=== PATIENT | female | born 1950 | race Caucasian/White ===

== ENCOUNTER 2024-03-21 17:22 | Inpatient (IN) | payer MEDICARE, OTHER ==
[~2024-03-21] VITALS: Ht 162.6 cm; Wt 82.8 kg
[2024-03-21] VITALS (9 sets, daily range): BP systolic 102–131; BP diastolic 53–80; PULSE 70–99; RESP 18–27; O2SAT 92–97
[2024-03-21] MEDS ORDERED: fentaNYL/PF 50MCG/1 ML 2ML syringe IV PRN (18:25)
[2024-03-21] MEDS ORDERED: propofol 10mg/ml 20ml vial IV PRN (18:25)
[2024-03-21] MEDS ORDERED: magnesium sulf-water 2g/50mL 50 ML IV PRN (18:30)
[2024-03-21] MEDS ORDERED: potassium Cl 20 mEq SR tablet PO PRN (18:30)
[2024-03-21] MEDS ORDERED: morphine 2 MG/ML inj. syringe IV PRN ×2 (18:30)
[2024-03-21] MEDS ORDERED: magnesium sulf-water 4G/100mL 100 ML IV PRN (18:30)
[2024-03-21] MEDS ORDERED: bisacodyl 10mg suppository rectal RC PRN (18:30)
[2024-03-21] MEDS: PERFLUTREN PROTEIN-A MICROSPHR (Optison) 0.22 MG/ML 3ML VIAL IV ONE (18:30)
[2024-03-21] MEDS ORDERED: ondansetron/PF 4mg/2ml inj IV PRN (18:30)
[2024-03-21] MEDS: propofol 1000mg/100ml bottle 100 ML IV ONE (18:49)
[2024-03-21] MEDS: FENTANYL-0.9 % NACL/PF 100 ML IV SCH (18:50)
[2024-03-21] MEDS: propofol 1000mg/100ml bottle 100 ML IV SCH (18:50)
[2024-03-21] MEDS: normal saline 1000ml 1,000 ML IV SCH (18:51)
[2024-03-21 19:33] LABS: BASOPHILS # (AUTO) 0.1 X10'3 (0-0.2); BASOPHILS % (AUTO) 0.5 % (0-1); EOSINOPHILS # (AUTO) 0.3 X10'3 (0-0.9); HEMATOCRIT 49.3 % (35.0-45.0); HEMOGLOBIN 16.5 g/dl (12.0-16.0); LYMPHOCYTES % (AUTO) 13.8 % (21-51); MEAN CORPUSCULAR HEMOGLOBIN 31.5 PG (27.0-31.0); MEAN CORPUSCULAR HGB CONC 33.4 g/dL (33.0-36.5); MEAN CORPUSCULAR VOLUME 94.2 FL (78-98); MEAN PLATELET VOLUME 8.3 FL (7.4-10.4); MONOCYTES % (AUTO) 13.8 % (2-12); NEUTROPHILS # (AUTO) 10.2 X10'3 (1.8-7.7); NEUTROPHILS % (AUTO) 69.9 % (42-75); PLATELET COUNT 281 X10'3 (140-440); RED BLOOD COUNT 5.23 X10'6 (4.20-5.60); RED CELL DISTRIBUTION WIDTH 16.4 % (11.5-14.5); WHITE BLOOD COUNT 14.6 X10'3 (4.5-11.0)
[2024-03-21 19:36] LABS: BILIRUBIN,URINE NEGATIVE (Neg); CLARITY,URINE SLIGHTLY CLOUDY (Clear); COLOR,URINE YELLOW (Yellow); GLUCOSE, URINE NEGATIVE (Neg); KETONES,URINE 15 mg/dl (Neg); LEUKOCYTE ESTERASE ,URINE NEGATIVE (Neg); NITRITES, URINE NEGATIVE (Neg); OCCULT BLOOD,URINE SMALL (Neg); PROTEIN,URINE TRACE mg/dl (Neg)
[2024-03-21 19:40] LABS: UA COLLECTION TYPE FOLEY CATH
[2024-03-21 19:47] LABS: APTT 23 SECONDS (22-32); INR 1.2 INR; PROTHROMBIN TIME 12.2 SECONDS (9.0-12.0)
[2024-03-21 19:48] LABS: BACTERIA,URINE FEW /HPF (Neg); SQUAMOUS EPITHELIAL CELL,UR FEW /LPF (FEW); WBC,URINE 0-4 /HPF (0-4)
[2024-03-21 19:51] LABS: RENAL CELLS, URINE FEW /HPF
[2024-03-21 19:52] LABS: MUCUS STRANDS FEW /LPF (Neg)
[2024-03-21 19:54] LABS: ALANINE AMINOTRANSFERASE 25 U/L (12-78); ALBUMIN 3.3 G/DL (3.4-5.0); ALBUMIN/GLOBULIN RATIO 1.1 (1.1-1.5); ALKALINE PHOSPHATASE 61 IU/L (46-116); ANION GAP 12 (8-16); ASPARTATE AMINO TRANSFERASE 28 U/L (10-37); BILIRUBIN,TOTAL 1.5 MG/DL (0.1-1.0); BLOOD UREA NITROGEN 28 MG/DL (7-18); C-REACTIVE PROTEIN 0.09 MG/DL (0.0-0.5); CALCIUM 10.4 MG/DL (8.5-10.1); CHLORIDE 100 MMOL/L (99-107); GLUCOSE 135 MG/DL (70-104); POTASSIUM 3.8 MMOL/L (3.5-5.1); SODIUM 142 MMOL/L (135-145); TOTAL CARBON DIOXIDE 30.2 MMOL/L (24-32); TOTAL PROTEIN 6.2 G/DL (6.4-8.2); eCRCL 47 ML/MIN; eGFR 54 ML/MIN
[2024-03-21] MEDS: apixaban 5mg tablet PO SCH (20:00)
[2024-03-21] MEDS ORDERED: heparin, porcine 5000 units/ml vial SQ SCH (20:00)
[2024-03-21] MEDS: piperacillin/tazo 3.375gm/50ml 50 ML IV SCH (20:29)
[2024-03-21] MEDS: dexamethasone 4mg/ml inj IV SCH (20:32)
[2024-03-21 20:36] LABS: ABG BASE EXCESS 3.4 mmol/L (-2.0-3.0); ABG HCO3 24.9 mmol/L (21.0-28.0); ABG OXYGEN SATURATION 89.2 % (94.0-98.0); ABG PCO2 (T) 29.2 mmHg (32.0-45.0); ABG PH (T) 7.547 (7.350-7.450); FCOHb 0.7 % (0.5-1.5); FHHb 10.7 % (0.0-5.0); FMetHb 0.3 % (0.0-1.5); FO2Hb 88.3 % (94.0-98.0); MODE ac/prvc; PATIENT TEMPERATURE 36.5; PEEP 5 cm H2O; RESPIRATORY RATE 18 b/min; TIDAL VOLUME 400 mL; TOTAL HEMOGLOBIN 16.9 G/dl (12.0-16.0)
[2024-03-21] MEDS: vancomycin/NS 1 GM ADD-VANTAGE 250 ML IV SCH (23:49)
[2024-03-22] VITALS (34 sets, daily range): BP systolic 86–129; BP diastolic 49–90; PULSE 49–72; RESP 15–31; O2SAT 91–98
[2024-03-22 03:15] LABS: ABG BASE EXCESS 3.7 mmol/L (-2.0-3.0); ABG HCO3 26.9 mmol/L (21.0-28.0); ABG OXYGEN SATURATION 96.1 % (94.0-98.0); ABG PH (T) 7.491 (7.350-7.450); ABG PO2 (T) 77.7 mmHg (83.0-108.0); FCOHb 0.5 % (0.5-1.5); FHHb 3.9 % (0.0-5.0); FMetHb 0.3 % (0.0-1.5); FO2Hb 95.3 % (94.0-98.0); MODE ac/prvc; PATIENT TEMPERATURE 36.7; PEEP 10 cm H2O; RESPIRATORY RATE 18 b/min; TIDAL VOLUME 400 mL; TOTAL HEMOGLOBIN 15.9 G/dl (12.0-16.0)
[2024-03-22 05:56] LABS: ALANINE AMINOTRANSFERASE 23 U/L (12-78); ALBUMIN 2.9 G/DL (3.4-5.0); ALBUMIN/GLOBULIN RATIO 1.1 (1.1-1.5); ALKALINE PHOSPHATASE 53 IU/L (46-116); ANION GAP 7 (8-16); ASPARTATE AMINO TRANSFERASE 25 U/L (10-37); BILIRUBIN,TOTAL 0.8 MG/DL (0.1-1.0); BLOOD UREA NITROGEN 25 MG/DL (7-18); BUN/CREATININE RATIO 26.9 (10.0-20.0); CALCIUM 10.3 MG/DL (8.5-10.1); CHLORIDE 103 MMOL/L (99-107); CREATININE 0.93 MG/DL (0.40-0.90); GLUCOSE 141 MG/DL (70-104); MAGNESIUM 2.2 MG/DL (1.5-2.4); PHOSPHORUS 2.5 MG/DL (2.3-4.5); POTASSIUM 3.7 MMOL/L (3.5-5.1); SODIUM 140 MMOL/L (135-145); TOTAL CARBON DIOXIDE 30.1 MMOL/L (24-32); TOTAL PROTEIN 5.6 G/DL (6.4-8.2); TRIGLYCERIDES 85 MG/DL (20-135); eCRCL 45 ML/MIN; eGFR 59 ML/MIN
[2024-03-22 06:07] LABS: BASOPHILS % (AUTO) 0.4 % (0-1); EOSINOPHILS % (AUTO) 0 % (0-6); HEMATOCRIT 46.8 % (35.0-45.0); HEMOGLOBIN 15.5 g/dl (12.0-16.0); LYMPHOCYTES # (AUTO) 0.6 X10'3 (1.1-4.8); MEAN CORPUSCULAR HEMOGLOBIN 30.6 PG (27.0-31.0); MEAN CORPUSCULAR HGB CONC 33.1 g/dL (33.0-36.5); MEAN CORPUSCULAR VOLUME 92.6 FL (78-98); MEAN PLATELET VOLUME 8.5 FL (7.4-10.4); MONOCYTES # (AUTO) 0.4 X10'3 (0-0.9); NEUTROPHILS # (AUTO) 8.6 X10'3 (1.8-7.7); NEUTROPHILS % (AUTO) 89.6 % (42-75); PLATELET COUNT 246 X10'3 (140-440); RED BLOOD COUNT 5.06 X10'6 (4.20-5.60); RED CELL DISTRIBUTION WIDTH 16.6 % (11.5-14.5); WHITE BLOOD COUNT 9.6 X10'3 (4.5-11.0)
[2024-03-22] MEDS ORDERED: ARFO15VI3 NEB (13:41)
[2024-03-22] MEDS ORDERED: OLAN2.5T3 PO (13:41)
[2024-03-22] MEDS ORDERED: BUDE0.5A3 NEB (13:41)
[2024-03-22] MEDS ORDERED: DIVA250T8 PO (13:41)
[2024-03-22] MEDS ORDERED: CARB1DRO EACHEYE (13:41)
[2024-03-22] MEDS ORDERED: SENN1TAB33 PO (13:41)
[2024-03-22] MEDS ORDERED: ATOR10TA70 PO (13:41)
[2024-03-22] MEDS ORDERED: TORS20TA3 PO (13:41)
[2024-03-22] MEDS ORDERED: LEVO88CA4 PO (13:41)
[2024-03-22] MEDS ORDERED: DOCO1CAP11 PO (13:41)
[2024-03-22] MEDS ORDERED: CHOL20003 PO (13:41)
[2024-03-22] MEDS ORDERED: TRAZ-251 PO (13:41)
[2024-03-22] MEDS ORDERED: VITA400T10 PO (13:41)
[2024-03-22] MEDS ORDERED: IPRA3AMP31 NEB (13:41)
[2024-03-22] MEDS ORDERED: BUSP5TAB3 PO (13:41)
[2024-03-22] MEDS ORDERED: APIX5TAB3 PO (13:41)
[2024-03-22] MEDS ORDERED: POTA-208 PO (13:41)
[2024-03-22] MEDS ORDERED: ASCO100031 PO (13:41)
[2024-03-22] MEDS: mineral oil/petrolatum ophthal oint EACHEYE SCH (20:12)
[2024-03-23] VITALS (34 sets, daily range): BP systolic 98–130; BP diastolic 46–61; PULSE 46–73; RESP 10–28; O2SAT 89–99
[2024-03-23 02:11] LABS: BASOPHILS % (AUTO) 0.2 % (0-1); EOSINOPHILS % (AUTO) 0.1 % (0-6); HEMATOCRIT 39.2 % (35.0-45.0); HEMOGLOBIN 13.1 g/dl (12.0-16.0); LYMPHOCYTES # (AUTO) 1.2 X10'3 (1.1-4.8); LYMPHOCYTES % (AUTO) 6.9 % (21-51); MEAN CORPUSCULAR HEMOGLOBIN 31.1 PG (27.0-31.0); MEAN CORPUSCULAR HGB CONC 33.4 g/dL (33.0-36.5); MEAN CORPUSCULAR VOLUME 93.1 FL (78-98); MEAN PLATELET VOLUME 8.5 FL (7.4-10.4); MONOCYTES % (AUTO) 11.6 % (2-12); NEUTROPHILS # (AUTO) 13.8 X10'3 (1.8-7.7); NEUTROPHILS % (AUTO) 81.2 % (42-75); PLATELET COUNT 251 X10'3 (140-440); RED BLOOD COUNT 4.21 X10'6 (4.20-5.60); RED CELL DISTRIBUTION WIDTH 16.7 % (11.5-14.5)
[2024-03-23 02:25] LABS: ALANINE AMINOTRANSFERASE 19 U/L (12-78); ALBUMIN 2.4 G/DL (3.4-5.0); ALKALINE PHOSPHATASE 42 IU/L (46-116); ANION GAP 9 (8-16); ASPARTATE AMINO TRANSFERASE 16 U/L (10-37); BILIRUBIN,TOTAL 0.8 MG/DL (0.1-1.0); BLOOD UREA NITROGEN 23 MG/DL (7-18); BUN/CREATININE RATIO 22.5 (10.0-20.0); CALCIUM 9.7 MG/DL (8.5-10.1); CHLORIDE 110 MMOL/L (99-107); CREATININE 1.02 MG/DL (0.40-0.90); GLUCOSE 119 MG/DL (70-104); MAGNESIUM 1.9 MG/DL (1.5-2.4); PHOSPHORUS 3.1 MG/DL (2.3-4.5); POTASSIUM 3.1 MMOL/L (3.5-5.1); SODIUM 146 MMOL/L (135-145); TOTAL CARBON DIOXIDE 26.9 MMOL/L (24-32); TOTAL PROTEIN 4.8 G/DL (6.4-8.2); eCRCL 41 ML/MIN; eGFR 53 ML/MIN
[2024-03-23] MEDS: potassium Cl 40MEQ/1/2NS 520ml 520 ML IV PRN (03:30)
[2024-03-23 03:52] LABS: ABG BASE EXCESS 4.1 mmol/L (-2.0-3.0); ABG HCO3 26.3 mmol/L (21.0-28.0); ABG OXYGEN SATURATION 97.8 % (94.0-98.0); ABG PCO2 (T) 31.8 mmHg (32.0-45.0); ABG PH (T) 7.535 (7.350-7.450); ABG PO2 (T) 92.7 mmHg (83.0-108.0); ALLEN'S TEST Modified; FCOHb 0.3 % (0.5-1.5); FHHb 2.2 % (0.0-5.0); FMetHb 0.3 % (0.0-1.5); FO2Hb 97.2 % (94.0-98.0); MODE PRVC; PATIENT TEMPERATURE 36.7; PEEP 10 cm H2O; RESPIRATORY RATE 16 b/min; TIDAL VOLUME 400 mL; TOTAL HEMOGLOBIN 14.1 G/dl (12.0-16.0)
[2024-03-23] MEDS: VANCOMYCIN LEVEL IV ONE (09:26)
[2024-03-23] MEDS: COMMUNICATION ORDER 1 EA MISC MC ONE ×2 (12:12→15:22)
[2024-03-23] MEDS: VANCOMYCIN 750MG IV in NS 250 ML IV SCH (20:01)
[2024-03-24] VITALS (39 sets, daily range): BP systolic 62–133; BP diastolic 14–59; PULSE 39–72; RESP 15–37; O2SAT 88–96
[2024-03-24 02:50] LABS: BASOPHILS % (AUTO) 0.2 % (0-1); EOSINOPHILS % (AUTO) 0 % (0-6); HEMATOCRIT 36.1 % (35.0-45.0); HEMOGLOBIN 11.8 g/dl (12.0-16.0); LYMPHOCYTES # (AUTO) 1.4 X10'3 (1.1-4.8); LYMPHOCYTES % (AUTO) 9.8 % (21-51); MEAN CORPUSCULAR HEMOGLOBIN 30.8 PG (27.0-31.0); MEAN CORPUSCULAR HGB CONC 32.6 g/dL (33.0-36.5); MEAN CORPUSCULAR VOLUME 94.5 FL (78-98); MEAN PLATELET VOLUME 8.9 FL (7.4-10.4); MONOCYTES # (AUTO) 1.7 X10'3 (0-0.9); MONOCYTES % (AUTO) 11.7 % (2-12); NEUTROPHILS # (AUTO) 11.3 X10'3 (1.8-7.7); NEUTROPHILS % (AUTO) 78.3 % (42-75); PLATELET COUNT 234 X10'3 (140-440); RED BLOOD COUNT 3.82 X10'6 (4.20-5.60); RED CELL DISTRIBUTION WIDTH 17.1 % (11.5-14.5); WHITE BLOOD COUNT 14.4 X10'3 (4.5-11.0)
[2024-03-24 02:58] LABS: ALANINE AMINOTRANSFERASE 18 U/L (12-78); ALBUMIN 2.1 G/DL (3.4-5.0); ALBUMIN/GLOBULIN RATIO 0.9 (1.1-1.5); ALKALINE PHOSPHATASE 41 IU/L (46-116); ANION GAP 8 (8-16); ASPARTATE AMINO TRANSFERASE 16 U/L (10-37); BILIRUBIN,TOTAL 0.6 MG/DL (0.1-1.0); BLOOD UREA NITROGEN 22 MG/DL (7-18); BUN/CREATININE RATIO 25.6 (10.0-20.0); CHLORIDE 115 MMOL/L (99-107); CREATININE 0.86 MG/DL (0.40-0.90); GLUCOSE 130 MG/DL (70-104); MAGNESIUM 1.8 MG/DL (1.5-2.4); POTASSIUM 3.4 MMOL/L (3.5-5.1); SODIUM 148 MMOL/L (135-145); TOTAL CARBON DIOXIDE 25.3 MMOL/L (24-32); TOTAL PROTEIN 4.4 G/DL (6.4-8.2); eCRCL 49 ML/MIN; eGFR 64 ML/MIN
[2024-03-24 02:59] LABS: ABG BASE EXCESS -1.2 mmol/L (-2.0-3.0); ABG HCO3 21.5 mmol/L (21.0-28.0); ABG OXYGEN SATURATION 96.2 % (94.0-98.0); ABG PCO2 (T) 29.6 mmHg (32.0-45.0); ABG PH (T) 7.478 (7.350-7.450); ABG PO2 (T) 78.6 mmHg (83.0-108.0); ALLEN'S TEST Modified; FCOHb 0.3 % (0.5-1.5); FHHb 3.8 % (0.0-5.0); FMetHb 0.3 % (0.0-1.5); FO2Hb 95.6 % (94.0-98.0); MODE ac/prvc; PATIENT TEMPERATURE 36.6; PEEP 7 cm H2O; RESPIRATORY RATE 16 b/min; TIDAL VOLUME 400 mL; TOTAL HEMOGLOBIN 12.3 G/dl (12.0-16.0)
[2024-03-24] MEDS: pantoprazole 40 MG vial IV SCH (10:16)
[2024-03-24] MEDS ORDERED: atorvastatin 10mg tablet PO SCH (11:10)
[2024-03-24 11:12] LABS: ALANINE AMINOTRANSFERASE 17 U/L (12-78); ALBUMIN 2.3 G/DL (3.4-5.0); ALKALINE PHOSPHATASE 41 IU/L (46-116); ANION GAP 9 (8-16); ASPARTATE AMINO TRANSFERASE 17 U/L (10-37); BILIRUBIN,TOTAL 0.8 MG/DL (0.1-1.0); BLOOD UREA NITROGEN 20 MG/DL (7-18); BUN/CREATININE RATIO 25.3 (10.0-20.0); CALCIUM 9.1 MG/DL (8.5-10.1); CHLORIDE 119 MMOL/L (99-107); CREATININE 0.79 MG/DL (0.40-0.90); GLUCOSE 117 MG/DL (70-104); POTASSIUM 4.2 MMOL/L (3.5-5.1); SODIUM 149 MMOL/L (135-145); TOTAL CARBON DIOXIDE 20.8 MMOL/L (24-32); TOTAL PROTEIN 4.7 G/DL (6.4-8.2); eCRCL 53 ML/MIN; eGFR 71 ML/MIN
[2024-03-24 11:48] LABS: PREALBUMIN 20.8 MG/DL (19-36)
[2024-03-24 15:29] LABS: HEMOGLOBIN A1C 5.4 % (4.5-6.2)
[2024-03-24] MEDS: budesonide 0.5mg/2ml UD nebule IH SCH (19:34)
[2024-03-24] MEDS: apixaban 5mg tablet OGT SCH (19:55)
[2024-03-24] MEDS: busPIRone 5mg tablet OGT SCH (19:55)
[2024-03-24] MEDS: divalproex sod 125mg sprinkle cap OGT SCH (20:00)
[2024-03-24] MEDS: traZODone 50mg tablet OGT SCH (21:00)
[2024-03-24] MEDS ORDERED: divalproex sod 125mg sprinkle cap OGT SCH (21:00)
[2024-03-25] VITALS (37 sets, daily range): BP systolic 96–130; BP diastolic 38–71; PULSE 40–98; RESP 10–39; O2SAT 87–95
[2024-03-25 03:30] LABS: ABG BASE EXCESS -5.4 mmol/L (-2.0-3.0); ABG OXYGEN SATURATION 96.3 % (94.0-98.0); ABG PCO2 (T) 28.8 mmHg (32.0-45.0); ABG PH (T) 7.413 (7.350-7.450); ABG PO2 (T) 85.3 mmHg (83.0-108.0); ALLEN'S TEST Modified; FCOHb 0.3 % (0.5-1.5); FHHb 3.7 % (0.0-5.0); FMetHb 0.3 % (0.0-1.5); FO2Hb 95.7 % (94.0-98.0); MODE ac/prvc; PATIENT TEMPERATURE 36.9; PEEP 5 cm H2O; RESPIRATORY RATE 14 b/min; TIDAL VOLUME 400 mL; TOTAL HEMOGLOBIN 12.6 G/dl (12.0-16.0)
[2024-03-25 05:57] LABS: BASOPHILS # (AUTO) 0.1 X10'3 (0-0.2); BASOPHILS % (AUTO) 0.4 % (0-1); EOSINOPHILS % (AUTO) 0.2 % (0-6); HEMATOCRIT 36.5 % (35.0-45.0); HEMOGLOBIN 11.9 g/dl (12.0-16.0); LYMPHOCYTES # (AUTO) 2.2 X10'3 (1.1-4.8); LYMPHOCYTES % (AUTO) 15.5 % (21-51); MEAN CORPUSCULAR HEMOGLOBIN 31.4 PG (27.0-31.0); MEAN CORPUSCULAR HGB CONC 32.7 g/dL (33.0-36.5); MEAN PLATELET VOLUME 9.1 FL (7.4-10.4); MONOCYTES # (AUTO) 1.8 X10'3 (0-0.9); MONOCYTES % (AUTO) 12.6 % (2-12); NEUTROPHILS # (AUTO) 10.2 X10'3 (1.8-7.7); NEUTROPHILS % (AUTO) 71.3 % (42-75); PLATELET COUNT 236 X10'3 (140-440); RED CELL DISTRIBUTION WIDTH 17.6 % (11.5-14.5); WHITE BLOOD COUNT 14.4 X10'3 (4.5-11.0)
[2024-03-25] MEDS ORDERED: furosemide 10 MG/1 ML 10ml inj IV ONE (06:35)
[2024-03-25] MEDS: albuterol 2.5 MG/3 ML nebule NEB PRN (07:38)
[2024-03-25] MEDS: furosemide 40mg tablet OGT SCH (07:56)
[2024-03-25] MEDS: OLANZapine 2.5MG tablet OGT SCH (07:57)
[2024-03-25] MEDS: atorvastatin 10mg tablet OGT SCH (07:57)
[2024-03-25] MEDS: ascorbic acid 500mg tablet OGT SCH (07:57)
[2024-03-25] MEDS: levoTHYROXINE 88mcg tablet OGT SCH (07:57)
[2024-03-25] MEDS ORDERED: TORSEMIDE 40 MG PO SCH (08:00)
[2024-03-25] MEDS ORDERED: VANCOMYCIN LEVEL IV ONE (08:30)
[2024-03-25 09:11] LABS: ALANINE AMINOTRANSFERASE 26 U/L (12-78); ALBUMIN 2.3 G/DL (3.4-5.0); ALBUMIN/GLOBULIN RATIO 0.9 (1.1-1.5); ALKALINE PHOSPHATASE 42 IU/L (46-116); ANION GAP 8 (8-16); BILIRUBIN,TOTAL 0.7 MG/DL (0.1-1.0); BLOOD UREA NITROGEN 21 MG/DL (7-18); BUN/CREATININE RATIO 30.4 (10.0-20.0); CHLORIDE 120 MMOL/L (99-107); CREATININE 0.69 MG/DL (0.40-0.90); GLUCOSE 120 MG/DL (70-104); MAGNESIUM 1.9 MG/DL (1.5-2.4); SODIUM 149 MMOL/L (135-145); TOTAL CARBON DIOXIDE 20.9 MMOL/L (24-32); TOTAL PROTEIN 4.9 G/DL (6.4-8.2); VANCOMYCIN,TROUGH 15.7 ug/mL (10.0-20.0); eCRCL 61 ML/MIN; eGFR 83 ML/MIN
[2024-03-25 09:13] LABS: ASPARTATE AMINO TRANSFERASE 28 U/L (10-37); PHOSPHORUS 2.7 MG/DL (2.3-4.5); POTASSIUM 3.8 MMOL/L (3.5-5.1)
[2024-03-26] VITALS (32 sets, daily range): BP systolic 81–140; BP diastolic 48–88; PULSE 51–97; RESP 14–35; O2SAT 89–96
[2024-03-26 02:41] LABS: BASOPHILS # (AUTO) 0.1 X10'3 (0-0.2); BASOPHILS % (AUTO) 0.4 % (0-1); EOSINOPHILS % (AUTO) 0.2 % (0-6); HEMATOCRIT 38.2 % (35.0-45.0); HEMOGLOBIN 12.5 g/dl (12.0-16.0); LYMPHOCYTES # (AUTO) 2.3 X10'3 (1.1-4.8); LYMPHOCYTES % (AUTO) 13.2 % (21-51); MEAN CORPUSCULAR HEMOGLOBIN 30.7 PG (27.0-31.0); MEAN CORPUSCULAR HGB CONC 32.7 g/dL (33.0-36.5); MEAN CORPUSCULAR VOLUME 93.7 FL (78-98); MEAN PLATELET VOLUME 8.3 FL (7.4-10.4); MONOCYTES # (AUTO) 1.8 X10'3 (0-0.9); MONOCYTES % (AUTO) 10.2 % (2-12); NEUTROPHILS # (AUTO) 13.4 X10'3 (1.8-7.7); PLATELET COUNT 262 X10'3 (140-440); RED BLOOD COUNT 4.08 X10'6 (4.20-5.60); WHITE BLOOD COUNT 17.6 X10'3 (4.5-11.0)
[2024-03-26 02:56] LABS: ALANINE AMINOTRANSFERASE 34 U/L (12-78); ALBUMIN 2.4 G/DL (3.4-5.0); ALKALINE PHOSPHATASE 42 IU/L (46-116); ANION GAP 9 (8-16); ASPARTATE AMINO TRANSFERASE 36 U/L (10-37); BILIRUBIN,TOTAL 0.9 MG/DL (0.1-1.0); BLOOD UREA NITROGEN 23 MG/DL (7-18); BUN/CREATININE RATIO 31.1 (10.0-20.0); CALCIUM 9.4 MG/DL (8.5-10.1); CHLORIDE 116 MMOL/L (99-107); CREATININE 0.74 MG/DL (0.40-0.90); GLUCOSE 90 MG/DL (70-104); MAGNESIUM 2.1 MG/DL (1.5-2.4); PHOSPHORUS 3.5 MG/DL (2.3-4.5); POTASSIUM 3.7 MMOL/L (3.5-5.1); SODIUM 151 MMOL/L (135-145); TOTAL CARBON DIOXIDE 26.5 MMOL/L (24-32); TOTAL PROTEIN 4.9 G/DL (6.4-8.2); eCRCL 57 ML/MIN; eGFR 77 ML/MIN
[2024-03-27] VITALS (66 sets, daily range): BP systolic 76–152; BP diastolic 43–77; PULSE 45–75; RESP 10–31; TEMP 97.9; O2SAT 85–97
[2024-03-27] MEDS: acetaminophen 325mg tablet PO PRN (02:31)
[2024-03-27 04:42] LABS: PREALBUMIN 29.9 MG/DL (19-36); THYROID STIMULATING HORMONE 1.17 ulU/ml (0.34-4.50)
[2024-03-27 08:29] LABS: BASOPHILS # (AUTO) 0.1 X10'3 (0-0.2); BASOPHILS % (AUTO) 0.5 % (0-1); EOSINOPHILS # (AUTO) 0.1 X10'3 (0-0.9); EOSINOPHILS % (AUTO) 0.7 % (0-6); HEMATOCRIT 39.5 % (35.0-45.0); LYMPHOCYTES # (AUTO) 3.7 X10'3 (1.1-4.8); LYMPHOCYTES % (AUTO) 21.8 % (21-51); MEAN CORPUSCULAR HEMOGLOBIN 31.4 PG (27.0-31.0); MEAN CORPUSCULAR HGB CONC 32.9 g/dL (33.0-36.5); MEAN CORPUSCULAR VOLUME 95.4 FL (78-98); MONOCYTES # (AUTO) 1.5 X10'3 (0-0.9); MONOCYTES % (AUTO) 9.1 % (2-12); NEUTROPHILS # (AUTO) 11.5 X10'3 (1.8-7.7); NEUTROPHILS % (AUTO) 67.9 % (42-75); PLATELET COUNT 266 X10'3 (140-440); RED BLOOD COUNT 4.14 X10'6 (4.20-5.60); RED CELL DISTRIBUTION WIDTH 17.5 % (11.5-14.5); WHITE BLOOD COUNT 16.9 X10'3 (4.5-11.0)
[2024-03-27 08:30] LABS: ALBUMIN 2.6 G/DL (3.4-5.0); ALKALINE PHOSPHATASE 45 IU/L (46-116); ANION GAP 11 (8-16); ASPARTATE AMINO TRANSFERASE 21 U/L (10-37); BILIRUBIN,TOTAL 0.9 MG/DL (0.1-1.0); CALCIUM 9.6 MG/DL (8.5-10.1); CHLORIDE 106 MMOL/L (99-107); CREATININE 1.18 MG/DL (0.40-0.90); GLUCOSE 100 MG/DL (70-104); POTASSIUM 3.7 MMOL/L (3.5-5.1); SODIUM 145 MMOL/L (135-145); TOTAL CARBON DIOXIDE 28.5 MMOL/L (24-32); TOTAL PROTEIN 5.2 G/DL (6.4-8.2); eCRCL 36 ML/MIN; eGFR 45 ML/MIN
[2024-03-27 08:43] LABS: ALANINE AMINOTRANSFERASE 41 U/L (12-78); BLOOD UREA NITROGEN 31 MG/DL (7-18); BUN/CREATININE RATIO 26.3 (10.0-20.0)
[2024-03-27 09:32] LABS: TOTAL CELLS COUNTED 100
[2024-03-27 09:33] LABS: ANISOCYTOSIS 1+; PLATELET ESTIMATE NORMAL
[2024-03-27 11:17] LABS: D-DIMER 0.28 MG/L FEU (0-0.50)
[2024-03-27] MEDS: lansoprazole 15mg solutab OGT SCH (11:25)
[2024-03-27] MEDS ORDERED: acetaminophen 325mg/10.15ml oral unit dose solution OGT PRN (11:26)
[2024-03-27] MEDS: albumin (Human) 5% 250ml 250 ML IV ONE ×2 (15:16)
[2024-03-27] MEDS: busPIRone 5mg tablet PO SCH (19:59)
[2024-03-27] MEDS: apixaban 5mg tablet PO SCH (19:59)
[2024-03-27] MEDS: traZODone 50mg tablet PO SCH (20:00)
[2024-03-27] MEDS: divalproex sod 125mg sprinkle cap PO SCH (20:01)
[2024-03-28] VITALS (44 sets, daily range): BP systolic 80–134; BP diastolic 45–65; PULSE 42–71; RESP 10–31; TEMP 98.1; O2SAT 89–98
[2024-03-28 06:44] LABS: BASOPHILS # (AUTO) 0.1 X10'3 (0-0.2); BASOPHILS % (AUTO) 0.3 % (0-1); EOSINOPHILS # (AUTO) 0.1 X10'3 (0-0.9); EOSINOPHILS % (AUTO) 0.5 % (0-6); HEMATOCRIT 38.4 % (35.0-45.0); LYMPHOCYTES # (AUTO) 3.2 X10'3 (1.1-4.8); LYMPHOCYTES % (AUTO) 20.3 % (21-51); MEAN CORPUSCULAR HEMOGLOBIN 31.9 PG (27.0-31.0); MEAN CORPUSCULAR HGB CONC 33.8 g/dL (33.0-36.5); MEAN CORPUSCULAR VOLUME 94.3 FL (78-98); MEAN PLATELET VOLUME 8.6 FL (7.4-10.4); MONOCYTES # (AUTO) 1.5 X10'3 (0-0.9); MONOCYTES % (AUTO) 9.6 % (2-12); NEUTROPHILS # (AUTO) 10.8 X10'3 (1.8-7.7); NEUTROPHILS % (AUTO) 69.3 % (42-75); PLATELET COUNT 257 X10'3 (140-440); RED BLOOD COUNT 4.07 X10'6 (4.20-5.60); RED CELL DISTRIBUTION WIDTH 16.4 % (11.5-14.5); WHITE BLOOD COUNT 15.6 X10'3 (4.5-11.0)
[2024-03-28 07:05] LABS: ALBUMIN 2.9 G/DL (3.4-5.0); ANION GAP 7 (8-16); BLOOD UREA NITROGEN 29 MG/DL (7-18); BUN/CREATININE RATIO 27.6 (10.0-20.0); CALCIUM 9.8 MG/DL (8.5-10.1); CHLORIDE 106 MMOL/L (99-107); CREATININE 1.05 MG/DL (0.40-0.90); GLUCOSE 98 MG/DL (70-104); POTASSIUM 3.7 MMOL/L (3.5-5.1); SODIUM 143 MMOL/L (135-145); TOTAL CARBON DIOXIDE 29.7 MMOL/L (24-32); eCRCL 40 ML/MIN; eGFR 51 ML/MIN
[2024-03-28 07:10] LABS: ANISOCYTOSIS 1+; PLATELET ESTIMATE NORMAL; TOTAL CELLS COUNTED 100
[2024-03-28] MEDS: ascorbic acid 500mg tablet PO SCH (07:13)
[2024-03-28] MEDS: atorvastatin 10mg tablet PO SCH (07:13)
[2024-03-28] MEDS: acetaminophen 325mg/10.15ml oral unit dose solution PO PRN (07:13)
[2024-03-28] MEDS: furosemide 40mg tablet PO SCH (07:14)
[2024-03-28] MEDS: levoTHYROXINE 88mcg tablet PO SCH (07:14)
[2024-03-28] MEDS: predniSONE 20 mg tablet PO SCH (07:14)
[2024-03-28] MEDS: lansoprazole 15mg solutab PO SCH (07:14)
[2024-03-28] MEDS: OLANZapine 2.5MG tablet PO SCH (07:14)
[2024-03-28 07:15] LABS: POLYCHROMASIA FEW
[2024-03-28] MEDS ORDERED: pantoprazole 40mg Tablet.DR PO SCH (07:30)
[2024-03-28] MEDS ORDERED: predniSONE 20 mg tablet OGT SCH (08:00)
[2024-03-28] MEDS: albumin (Human) 5% 250ml 250 ML IV ONE ×2 (09:20)
[2024-03-28] MEDS: midodrine 5mg tablet PO SCH (14:41)
[2024-03-28] MEDS ORDERED: midodrine 5mg tablet PO SCH (14:45)
[2024-03-28] MEDS ORDERED: midodrine tablet 2.5 MG TABLET PO SCH (14:45)
[2024-03-29] VITALS (18 sets, daily range): BP systolic 100–132; BP diastolic 57–99; PULSE 51–75; RESP 12–22; TEMP 96.9–98.1; O2SAT 90–95
[2024-03-29 07:25] LABS: BASOPHILS % (AUTO) 0.2 % (0-1); EOSINOPHILS # (AUTO) 0.2 X10'3 (0-0.9); EOSINOPHILS % (AUTO) 1.7 % (0-6); HEMATOCRIT 40.3 % (35.0-45.0); HEMOGLOBIN 13.7 g/dl (12.0-16.0); LYMPHOCYTES # (AUTO) 4.6 X10'3 (1.1-4.8); LYMPHOCYTES % (AUTO) 31.6 % (21-51); MEAN CORPUSCULAR HEMOGLOBIN 32.1 PG (27.0-31.0); MEAN CORPUSCULAR VOLUME 94.3 FL (78-98); MEAN PLATELET VOLUME 8.5 FL (7.4-10.4); MONOCYTES # (AUTO) 1.5 X10'3 (0-0.9); MONOCYTES % (AUTO) 10.4 % (2-12); NEUTROPHILS # (AUTO) 8.2 X10'3 (1.8-7.7); NEUTROPHILS % (AUTO) 56.1 % (42-75); PLATELET COUNT 289 X10'3 (140-440); RED BLOOD COUNT 4.27 X10'6 (4.20-5.60); RED CELL DISTRIBUTION WIDTH 16.7 % (11.5-14.5); WHITE BLOOD COUNT 14.6 X10'3 (4.5-11.0)
[2024-03-29 07:37] LABS: ALBUMIN 3.3 G/DL (3.4-5.0); ANION GAP 10 (8-16); BLOOD UREA NITROGEN 26 MG/DL (7-18); BUN/CREATININE RATIO 30.6 (10.0-20.0); CALCIUM 9.5 MG/DL (8.5-10.1); CHLORIDE 106 MMOL/L (99-107); CREATININE 0.85 MG/DL (0.40-0.90); GLUCOSE 86 MG/DL (70-104); POTASSIUM 3.4 MMOL/L (3.5-5.1); SODIUM 146 MMOL/L (135-145); TOTAL CARBON DIOXIDE 29.7 MMOL/L (24-32); eCRCL 49 ML/MIN; eGFR 65 ML/MIN
[2024-03-29] MEDS ORDERED: dexamethasone 4mg tablet PO SCH (08:00)
[2024-03-29] MEDS: pantoprazole 40mg Tablet.DR PO SCH (10:19)
[2024-03-29] MEDS ORDERED: potassium Cl 20 mEq SR tablet PO PRN (19:20)
[2024-03-29] MEDS ORDERED: potassium Cl 40MEQ/1/2NS 520ml 520 ML IV PRN (19:20)
[2024-03-29] MEDS: potassium Cl 20 mEq SR tablet PO PRN (19:40)
[2024-03-29] MEDS: acetaminophen 325mg tablet PO PRN (19:59)
[2024-03-29] MEDS: K and/or MAG REPLACEMENT MC SCH (20:00)
[2024-03-30] VITALS (21 sets, daily range): BP systolic 99–121; BP diastolic 34–72; PULSE 44–63; RESP 10–28; TEMP 96.5–98.9; O2SAT 90–97
[2024-03-30 06:59] LABS: BASOPHILS # (AUTO) 0.1 X10'3 (0-0.2); BASOPHILS % (AUTO) 0.4 % (0-1); EOSINOPHILS # (AUTO) 0.2 X10'3 (0-0.9); EOSINOPHILS % (AUTO) 1.4 % (0-6); HEMATOCRIT 38.7 % (35.0-45.0); HEMOGLOBIN 12.9 g/dl (12.0-16.0); LYMPHOCYTES # (AUTO) 3.6 X10'3 (1.1-4.8); LYMPHOCYTES % (AUTO) 27.6 % (21-51); MEAN CORPUSCULAR HEMOGLOBIN 31.5 PG (27.0-31.0); MEAN CORPUSCULAR HGB CONC 33.3 g/dL (33.0-36.5); MEAN CORPUSCULAR VOLUME 94.7 FL (78-98); MEAN PLATELET VOLUME 8.6 FL (7.4-10.4); MONOCYTES # (AUTO) 1.4 X10'3 (0-0.9); MONOCYTES % (AUTO) 10.9 % (2-12); NEUTROPHILS # (AUTO) 7.7 X10'3 (1.8-7.7); NEUTROPHILS % (AUTO) 59.7 % (42-75); PLATELET COUNT 275 X10'3 (140-440); RED BLOOD COUNT 4.09 X10'6 (4.20-5.60); RED CELL DISTRIBUTION WIDTH 16.8 % (11.5-14.5); WHITE BLOOD COUNT 12.9 X10'3 (4.5-11.0)
[2024-03-30 07:35] LABS: ALBUMIN 2.9 G/DL (3.4-5.0); ANION GAP 7 (8-16); BLOOD UREA NITROGEN 24 MG/DL (7-18); BUN/CREATININE RATIO 28.9 (10.0-20.0); CHLORIDE 108 MMOL/L (99-107); CREATININE 0.83 MG/DL (0.40-0.90); GLUCOSE 81 MG/DL (70-104); SODIUM 144 MMOL/L (135-145); TOTAL CARBON DIOXIDE 29.1 MMOL/L (24-32); eCRCL 51 ML/MIN; eGFR 67 ML/MIN
[2024-03-30 07:40] LABS: POTASSIUM 3.6 MMOL/L (3.5-5.1)
[2024-03-31] VITALS (17 sets, daily range): BP systolic 85–154; BP diastolic 40–89; PULSE 41–94; RESP 10–22; TEMP 97.3–98.3; O2SAT 90–96
[2024-03-31 01:35] LABS: BASOPHILS % (AUTO) 0.3 % (0-1); EOSINOPHILS % (AUTO) 0.3 % (0-6); HEMATOCRIT 37.2 % (35.0-45.0); HEMOGLOBIN 12.5 g/dl (12.0-16.0); LYMPHOCYTES # (AUTO) 2.2 X10'3 (1.1-4.8); LYMPHOCYTES % (AUTO) 17.3 % (21-51); MEAN CORPUSCULAR HEMOGLOBIN 31.7 PG (27.0-31.0); MEAN CORPUSCULAR HGB CONC 33.6 g/dL (33.0-36.5); MEAN CORPUSCULAR VOLUME 94.5 FL (78-98); MEAN PLATELET VOLUME 8.6 FL (7.4-10.4); MONOCYTES # (AUTO) 1.1 X10'3 (0-0.9); NEUTROPHILS # (AUTO) 9.2 X10'3 (1.8-7.7); NEUTROPHILS % (AUTO) 73.1 % (42-75); PLATELET COUNT 270 X10'3 (140-440); RED BLOOD COUNT 3.93 X10'6 (4.20-5.60); RED CELL DISTRIBUTION WIDTH 16.7 % (11.5-14.5); WHITE BLOOD COUNT 12.6 X10'3 (4.5-11.0)
[2024-03-31 01:49] LABS: ALBUMIN 2.8 G/DL (3.4-5.0); ANION GAP 6 (8-16); BLOOD UREA NITROGEN 21 MG/DL (7-18); BUN/CREATININE RATIO 27.6 (10.0-20.0); CALCIUM 9.3 MG/DL (8.5-10.1); CHLORIDE 104 MMOL/L (99-107); CREATININE 0.76 MG/DL (0.40-0.90); GLUCOSE 100 MG/DL (70-104); PREALBUMIN 24.3 MG/DL (19-36); SODIUM 141 MMOL/L (135-145); TOTAL CARBON DIOXIDE 30.9 MMOL/L (24-32); eCRCL 55 ML/MIN; eGFR 74 ML/MIN
[2024-03-31 01:52] LABS: POTASSIUM 4.1 MMOL/L (3.5-5.1)
[2024-04-01] VITALS (13 sets, daily range): BP systolic 98–123; BP diastolic 38–63; PULSE 52–80; RESP 19–27; TEMP 97–98.8; O2SAT 90–94
[2024-04-01 07:03] LABS: BASOPHILS # (AUTO) 0.1 X10'3 (0-0.2); BASOPHILS % (AUTO) 0.5 % (0-1); EOSINOPHILS # (AUTO) 0.3 X10'3 (0-0.9); EOSINOPHILS % (AUTO) 1.9 % (0-6); HEMATOCRIT 38.9 % (35.0-45.0); HEMOGLOBIN 12.7 g/dl (12.0-16.0); LYMPHOCYTES # (AUTO) 3.7 X10'3 (1.1-4.8); LYMPHOCYTES % (AUTO) 27.6 % (21-51); MEAN CORPUSCULAR HEMOGLOBIN 31.1 PG (27.0-31.0); MEAN CORPUSCULAR HGB CONC 32.6 g/dL (33.0-36.5); MEAN CORPUSCULAR VOLUME 95.5 FL (78-98); MEAN PLATELET VOLUME 8.1 FL (7.4-10.4); MONOCYTES # (AUTO) 1.1 X10'3 (0-0.9); MONOCYTES % (AUTO) 8.4 % (2-12); NEUTROPHILS # (AUTO) 8.2 X10'3 (1.8-7.7); NEUTROPHILS % (AUTO) 61.6 % (42-75); PLATELET COUNT 253 X10'3 (140-440); RED BLOOD COUNT 4.08 X10'6 (4.20-5.60); RED CELL DISTRIBUTION WIDTH 16.6 % (11.5-14.5); WHITE BLOOD COUNT 13.3 X10'3 (4.5-11.0)
[2024-04-01 07:30] LABS: ALBUMIN 2.7 G/DL (3.4-5.0); ANION GAP 7 (8-16); BLOOD UREA NITROGEN 16 MG/DL (7-18); BUN/CREATININE RATIO 21.9 (10.0-20.0); CALCIUM 9.4 MG/DL (8.5-10.1); CHLORIDE 109 MMOL/L (99-107); CREATININE 0.73 MG/DL (0.40-0.90); GLUCOSE 89 MG/DL (70-104); POTASSIUM 3.4 MMOL/L (3.5-5.1); SODIUM 143 MMOL/L (135-145); TOTAL CARBON DIOXIDE 27.3 MMOL/L (24-32); eCRCL 58 ML/MIN; eGFR 78 ML/MIN
[2024-04-01] MEDS: magnesium hydroxide 30ml (MOM) UD suspension PO PRN (10:06)
[2024-04-02 06:30] VITALS: O2SAT 91
[2024-04-02 07:00] VITALS: BP 141/71; PULSE 64; RESP 16; TEMP 98.1; O2SAT 95
[2024-04-02 07:37] VITALS: PULSE 62; RESP 22; O2SAT 97
[2024-04-02 07:46] VITALS: PULSE 63; RESP 21
[2024-04-02 08:00] VITALS: RESP 16; O2SAT 94
[2024-04-02 11:00] VITALS: BP 118/54; PULSE 73; RESP 16; TEMP 98.2; O2SAT 92
== END 2024-04-02 14:40 | DRG 871 ==
LOC: UNDOADMIN 18:08 → CICU 2S 18:08 → PCU 3S 03-28 17:57
PROVIDERS: ADMIT Internal Medicine Critical Care Medicine; ATTEND Internal Medicine Critical Care Medicine
PROC: 5A1945Z Respiratory Ventilation, 24-96 Consecutive Hours (ICD-10-PCS; principal; 2024-03-21)
PROC: 5A0955A Assistance with Respiratory Ventilation, Greater than 96 Consecutive Hours, High Flow/Velocity Cannula (ICD-10-PCS; 2024-03-25)
DX: A41.9 Sepsis, unspecified organism (principal); J18.9 Pneumonia, unspecified organism; J96.01 Acute respiratory failure with hypoxia; N17.0 Acute kidney failure with tubular necrosis; I13.0 Hypertensive heart and chronic kidney disease with heart failure and stage 1 through stage 4 chronic kidney disease, or unspecified chronic kidney disease; G20.A1 Parkinson's disease without dyskinesia, without mention of fluctuations; E03.9 Hypothyroidism, unspecified; R73.9 Hyperglycemia, unspecified; D50.9 Iron deficiency anemia, unspecified; I50.9 Heart failure, unspecified; N18.30 Chronic kidney disease, stage 3 unspecified; F31.9 Bipolar disorder, unspecified; Z86.16 Personal history of COVID-19; Z88.8 Allergy status to other drugs, medicaments and biological substances; Z88.5 Allergy status to narcotic agent; Z86.718 Personal history of other venous thrombosis and embolism
CPT/HCPCS: 36415; 36600; 71045; 71250; 80048; 80053; 80202; 81001; 82803; 82948; 83036; 83605; 83735; 84100; 84134; 84145; 84443; 84478; 85007; 85018; 85025; 85379; 85610; 85730; 86140; 87040; 87070; 87081; 92508; 92616; 93005; 93308; 94002; 94003; 94640; 94664; 94760; 97110; 97116; 97162; 97530; A4314; A4333; A4615; A6213; A6250; A6449; A7015; G0378; J1100; J2470; J2543; J2704; J3010; J3370; J3480; J7030; J7040; J7050; J7512; P9045